=== PATIENT | female | born 1970 | race Caucasian/White ===

== ENCOUNTER 2022-05-14 04:27 | Day surgery (SDC) | payer BC ==
[2022-05-12 10:57] VITALS: BMI 21.9
[2022-05-14] MEDS ORDERED: SIMETHICONE 40 MG/0.6 ML BOTTLE ONE (07:38)
[2022-05-14 08:39] VITALS: TEMP 97.3
[2022-05-14 09:16] VITALS: BP 113/75; PULSE 58; RESP 14
== END 2022-05-14 09:41 | disposition home or self-care (01) ==
LOC: JASU-ENDO 04:27
PROVIDERS: ATTEND Internal Medicine Gastroenterology
PROC: 0DBP8ZX Excision of Rectum, Via Natural or Artificial Opening Endoscopic, Diagnostic (ICD-10-PCS; 2022-05-14)
PROC: 0D5N8ZZ Destruction of Sigmoid Colon, Via Natural or Artificial Opening Endoscopic (ICD-10-PCS; principal; 2022-05-14 08:00)
DX: Z12.11 Encounter for screening for malignant neoplasm of colon (principal); K62.1 Rectal polyp; D12.5 Benign neoplasm of sigmoid colon; K63.89 Other specified diseases of intestine; K64.8 Other hemorrhoids; Z86.010 Personal history of colon polyps
CPT/HCPCS: 88305-TC